=== PATIENT | female | born 1960 | race Caucasian/White ===

== ENCOUNTER 2017-08-04 07:48 | Emergency (ER) | payer OTHER ==
[~2017-08-04] VITALS: Ht 149.9 cm; Wt 58.2 kg
[2017-08-04] MEDS ORDERED: GLEEVEC PO (08:08)
[2017-08-04] MEDS ORDERED: ZANTAC150 M1 (08:09)
[2017-08-04] MEDS ORDERED: MIMVEY 1 MG-0.51 TAB PO (08:09)
[2017-08-04] MEDS ORDERED: CLARITIN 1010 MG/TAB PO (08:09)
[2017-08-04] MEDS ORDERED: CALCIUM 600 MG-1 TAB (08:10)
[2017-08-04] MEDS ORDERED: DIAMOX 250MG250 MG (08:10)
[2017-08-04] MEDS ORDERED: MAGNESIUM CHELA27 MG (08:10)
[2017-08-04] MEDS ORDERED: MORGIDOX 1X100100 MG PO (09:01)
[2017-08-04 09:14] VITALS: BP 129/77
== END 2017-08-04 09:14 | disposition home or self-care (01) ==
LOC: ED 07:48
DX: S10.86XA Insect bite of other specified part of neck, initial encounter (principal); W57.XXXA Bitten or stung by nonvenomous insect and other nonvenomous arthropods, initial encounter; Z88.0 Allergy status to penicillin; Z88.8 Allergy status to other drugs, medicaments and biological substances